=== PATIENT | male | born 1990 | race American Indian/Alaskan Native ===

== ENCOUNTER 2019-10-27 18:29 | Emergency (ER) | payer SELFPAY ==
--- NOTE | 2019-10-27 18:59 | Emergency Department Report ---
Chief Complaint: Upper Respiratory Infection Stated Complaint: COULD, COLD, DIRRAHEA Time Seen by Provider: 10/27/19 18:55 - HPI History of Present Illness: This is a 29 y.o. M. that presents to the ER with cough, congestion, and diarrhea since yesterday. PMH of HIV States he ride the train and been [place] and worried of possible vega virus. He is currently off HIV medication and worried he caught something. Taking theraflu and last taken this morning. - Exam Vital Signs: Vital Signs 10/27/19 18:54 Temperature 98.7 F Pulse Rate 90 Respiratory 18 Rate Blood Pressure 165/102 O2 Sat by Pulse 99 Oximetry MSE screening note: Focused history and physical exam performed. Due to findings the following was ordered: ED Disposition for MSE Condition: Stable
--- NOTE | 2019-10-27 20:30 | Emergency Department Report ---
HPI - General Chief Complaint: Upper Respiratory Infection Time Seen by Provider: 10/27/19 18:55 - HPI HPI: Room 31 The patient is a 29-year-old male present with a chief complaint of cough. Patient states for the past 3 days he has had a cough productive of yellowish- green sputum. Patient states he is also began developing rhinorrhea. Patient states he has no known sick contacts and no recent travel. Patient denies history of fever. Patient states she has gained approximately 60 pounds unintentionally over the past 2 months and is uncertain why as his eating habits have not changed ED Past Medical Hx - Past Medical History Previous Medical History?: Yes Hx HIV: Yes (Last CD4 count 600s Fall 2018) - Surgical History Past Surgical History?: Yes - Family History Family history: no significant - Social History Smoking Status: Never Smoker Substance Use Type: None (Denies illicit drug use) - Medications Home Medications: Home Medications Medication Instructions Recorded Confirmed Last Taken Type Azithromycin [Zithromax Z-SERA] 0 mg PO DAILY #6 tab 10/27/19 Unknown Rx Benzonatate [Tessalon Perles] 100 mg PO Q8HR #30 capsule 10/27/19 Unknown Rx Oxymetazoline 0.05% [Vicks Sinex] 1 - 2 spray NS Q12H #1 bottle 10/27/19 Unknown Rx ED Review of Systems ROS: Stated complaint: COULD, COLD, DIRRAHEA Other details as noted in HPI Constitutional: denies: fever ENT: congestion Respiratory: cough Cardiovascular: denies: chest pain Endocrine: no symptoms reported Gastrointestinal: denies: abdominal pain Genitourinary: denies: dysuria Musculoskeletal: denies: back pain Neurological: denies: headache Physical Exam - Physical Exam Vital Signs: Vital Signs 10/27/19 18:54 Temperature 98.7 F Pulse Rate 90 Respiratory 18 Rate Blood Pressure 165/102 O2 Sat by Pulse 99 Oximetry Physical Exam: GENERAL: The patient is well-developed well-nourished male sitting on stretcher not appearing to be in acute distress. [] HEENT: Normocephalic. Atraumatic. Extraocular motions are intact. Patient has moist mucous membranes. NECK: Supple. Trachea midline CHEST/LUNGS: Clear to auscultation. There is no respiratory distress noted. HEART/CARDIOVASCULAR: Regular. There is no tachycardia. There is no gallop rub or murmur. ABDOMEN: Abdomen is soft, nontender. Patient has normal bowel sounds. There is no abdominal distention. SKIN: There is no rash. There is no edema. There is no diaphoresis. NEURO: The patient is awake, alert, and oriented. The patient is cooperative. The patient has normal speech MUSCULOSKELETAL: There is no evidence of acute injury. ED Course Vital Signs 10/27/19 18:54 Temperature 98.7 F Pulse Rate 90 Respiratory 18 Rate Blood Pressure 165/102 O2 Sat by Pulse 99 Oximetry ED Medical Decision Making - Lab Data Result diagrams: 10/27/19 20:35 10/27/19 20:35 Laboratory Tests 10/27/19 10/27/19 10/27/19 20:35 20:35 20:35 WBC 6.8 RBC 5.14 H Hgb 14.7 Hct 44.8 MCV 87 MCH 29 MCHC 33 RDW 14.5 Plt Count 238 Lymph % (Auto) 44.4 H Luce % (Auto) 8.7 H Eos % (Auto) 2.0 Baso % (Auto) 0.4 Lymph # 3.0 Luce # 0.6 Eos # 0.1 Baso # 0.0 Seg Neutrophils % 44.5 Seg Neutrophils # 3.0 Sodium 136 L Potassium 4.0 Chloride 98.7 Carbon Dioxide 23 Anion Gap 18 BUN 9 Creatinine 0.8 Estimated GFR > 60 BUN/Creatinine Ratio 11 Glucose 149 H Calcium 9.9 TSH Free T4 Influenza A (Rapid) Negative Influenza B (Rapid) Negative 10/27/19 20:35 WBC RBC Hgb Hct MCV MCH MCHC RDW Plt Count Lymph % (Auto) Luce % (Auto) Eos % (Auto) Baso % (Auto) Lymph # Luce # Eos # Baso # Seg Neutrophils % Seg Neutrophils # Sodium Potassium Chloride Carbon Dioxide Anion Gap BUN Creatinine Estimated GFR BUN/Creatinine Ratio Glucose Calcium TSH 1.100 Free T4 0.83 Influenza A (Rapid) Influenza B (Rapid) - Radiology Data Radiology results: report reviewed (Chest x-ray), image reviewed (Chest x-ray) interpreted by me: Chest x-ray-no focal infiltrates, no pneumothorax Findings [facility] [address] [place] [address] XRay Report Signed Patient: KIMBERLY BURNETTE MR#: [id number] : 1990 Acct:[id number] Age/Sex: 29 / M ADM Date: 10/27/19 Loc: ED Attending Dr: Ordering Physician: NAZIA COCHRAN MD Date of Service: 10/27/19 Procedure(s): XR chest routine 2V Accession Number(s): [id number] cc: NAZIA COCHRAN MD Fluoro Time In Minutes: CHEST 2 VIEWS INDICATION / CLINICAL INFORMATION: Complaining of productive cough, runny nose, nausea and diarrhea x1 day.. COMPARISON: None available. FINDINGS: SUPPORT DEVICES: None. HEART / MEDIASTINUM: The heart size and pulmonary vasculature are normal. LUNGS / PLEURA: No significant pulmonary or pleural abnormality. No pneumothorax. ADDITIONAL FINDINGS: The left hemidiaphragm is slightly higher than the right. IMPRESSION: No acute findings. There is no evidence of pneumonia. Signer Name: Demetrio Ramos MD Signed: 10/27/2019 9:14 PM Workstation Name: [id number] Transcribed By: RT Dictated By: Demetrio Ramos MD Electronically Authenticated By: Demetrio Ramos MD Signed Date/Time: 10/27/192113 DD/ 13 TD/TT: - Differential Diagnosis Pneumonia, bronchitis, influenza Critical care attestation.: If time is entered above; I have spent that time in minutes in the direct care of this critically ill patient, excluding procedure time. ED Disposition Clinical Impression: Acute bronchitis Disposition: DC-01 TO HOME OR SELFCARE Is pt being admited?: No Does the pt Need Aspirin: No Condition: Stable Instructions: Acute Bronchitis (ED) Additional Instructions: Return to the emergency department should you develop worsening symptoms, inability to tolerate food or liquids, high fever or any other concerns Prescriptions: Benzonatate [Tessalon Perles] 100 mg PO Q8HR #30 capsule Oxymetazoline 0.05% [Vicks Sinex] 1 - 2 spray NS Q12H #1 bottle Azithromycin [Zithromax Z-SERA] 0 mg PO DAILY #6 tab Referrals: MICHAEL BURRELL MD [Staff Physician] - 3-5 Days (Dr. Burrell is a primary physician. Please follow-up with him to be established as a patient) GUILLE MCMILLAN MD [Staff Physician] - 3-5 Days (Dr. Mcmillan is an infectious disease doctor. Please follow-up with him for further evaluation) Time of Disposition: 21:49
[2019-10-27 21:06] LABS: BUN/Creatinine Ratio 11; Blood Urea Nitrogen 9 mg/dL (9-20); Calcium 9.9 mg/dL (8.4-10.2); Hemolysis Index 12
--- NOTE | 2019-10-27 21:19 | XRay Report ---
CHEST 2 VIEWS INDICATION / CLINICAL INFORMATION: Complaining of productive cough, runny nose, nausea and diarrhea x1 day.. COMPARISON: None available. FINDINGS: SUPPORT DEVICES: None. HEART / MEDIASTINUM: The heart size and pulmonary vasculature are normal. LUNGS / PLEURA: No significant pulmonary or pleural abnormality. No pneumothorax. ADDITIONAL FINDINGS: The left hemidiaphragm is slightly higher than the right. IMPRESSION: No acute findings. There is no evidence of pneumonia. Signer Name: Demetrio Ramos MD Signed: 10/27/2019 9:14 PM Workstation Name: [id number]
[2019-10-27 21:21] LABS: Free T4 (Free Thyroxine) 0.83 ng/dL (0.76-1.46)
[2019-10-27 21:26] LABS: Basophils % (Auto) 0.4 % (0.0-1.8); Eosinophils # (Auto) 0.1 K/mm3 (0.0-0.4); Hematocrit 44.8 % (35.5-45.6); Hemoglobin 14.7 gm/dl (11.8-15.2); Lymphocytes % (Auto) 44.4 % (13.4-35.0); Mean Corpuscular HGB Conc 33 % (32-34); Mean Corpuscular Volume 87 fl (84-94); Monocytes # (Auto) 0.6 K/mm3 (0.0-0.8); Monocytes % (Auto) 8.7 % (0.0-7.3); Platelet Count 238 K/mm3 (140-440); Red Blood Count 5.14 M/mm3 (3.65-5.03); Red Cell Distribution Width 14.5 % (13.2-15.2)
[2019-10-27 22:09] VITALS: BP 129/84
== END 2019-10-27 22:18 | disposition home or self-care (01) ==
LOC: ED 18:29
DX: J20.9 Acute bronchitis, unspecified (principal)
CPT/HCPCS: 36415; 71046; 80048; 84439; 84443; 85025; 87400; 99283